=== PATIENT | male | born 1975 | race Caucasian/White ===

== ENCOUNTER 2021-07-21 18:24 | Emergency (ER) | payer OTHER, SELFPAY ==
--- NOTE | ~2021-07-21 | US_ITS ---
EXAMINATION: US scrotum doppler DATE: 07/21/2021 20:02 INDICATION: Scrotal trauma. TECHNIQUE: Grayscale and Doppler ultrasound images of the testes were obtained. COMPARISON: None. FINDINGS: The right testis measures 5.4 x 3.3 x 2.7. The left testis measures 4.0 x 3.3 x 2.4. There is normal vascular flow to both testes. The right epididymis is normal with normal vascular flow. The left epididymis is normal with normal vascular flow. Heterogeneous crescentic area along the subcaps ular region of the anterior right testicle, hypoechoic to normal parenchyma, without definite vascula r flow. More generalized, nonfocal heterogeneity in the remaining right testicle which may reflect ed sara. No hydroceles. Bilateral varicoceles. IMPRESSION: 1. Right intratesticular hematoma. Reviewed, dictated and finalized at location K.
[2021-07-21 18:35] VITALS: BP 148/93; PULSE 72; RESP 18; TEMP 36.5; O2SAT 97
--- NOTE | 2021-07-21 20:37 | ED.GENADULT ---
HPI - General Adult General Chief complaint: Urogenital-Male Stated complaint: baseball to testicle Time Seen by Provider: 07/21/21 20:32 Source: patient and RN notes reviewed Mode of arrival: ambulatory Limitations: no limitations History of Present Illness HPI narrative: 46-year-old male presented to the emergency department for evaluation of a right testicular injury. About 5:15 PM patient was struck in the groin by a baseball thrown at a low speed by a child. Patient states he was not able to catch the ball and was struck on the right testicle. Patient had noticed that he did have increased swelling. Patient reports no prior testicular surgical history, no vasectomy. He states he is urinating without issue. Review of Systems Review of Systems: CONSTITUTIONAL: Denies fever, chills, or sweats. GASTROINTESTINAL: Denies abdominal pain, nausea, vomiting, or diarrhea. GENITOURINARY: See HPI SKIN: Denies rash or itching. MUSCULOSKELETAL: Denies back pain, joint pain, or myalgia. NEUROLOGIC: Denies headache, numbness, or weakness. All systems reviewed & are unremarkable except as noted in HPI and below Exam Narrative: APPEARANCE: Well appearing, no pain, no distress, well-nourished. HEAD: normocephalic, atraumatic. EYES: PERRLA/EOMI, conjunctivae clear. NOSE: Normal no drainage EARS:TMS clear with good light reflex. THROAT: Pharynx clear, no exudate. NECK: Supple. No adenopathy, no masses. RESPIRATORY: Airway patent, respirations nonlabored. Clear to auscultation bilaterally, no rales, rhonchi, wheezing. CARDIOVASCULAR: Regular rate and rhythm without murmurs rubs or gallops. ABDOMINAL: Soft, nontender, nondistended, normal bowel sounds. Patient does have a low hanging right testicle that is larger than the left. No tenderness to left testicle. Mild tenderness to right. No significant scrotal edema or ecchymosis. MUSCULOSKELETAL: Moves all extremities. Strength/ROM intact, No edema, No calf tenderness. NEURO: Alert. Cranial nerves II through XII intact. Good gait. Good coordination SKIN: Warm, dry. Normal Color Course Consultations Consultation #1: Consulted Dr. Marie. is updated on the physical exam and on the ultrasound report. He did recommend the patient wear tight supportive underwear and to ice as needed. Did recommend follow-up with the office with an ultrasound in approximately 2 weeks. Vital Signs Vital signs: Vital Signs Temperature 97.7 F 07/21/21 18:35 Pulse Rate 72 07/21/21 18:35 Respiratory Rate 18 07/21/21 18:35 Blood Pressure 148/93 H 07/21/21 18:35 Pulse Oximetry 97 07/21/21 18:35 Temperature 99.3 F 07/21/21 20:48 Pulse Rate 79 07/21/21 20:48 Respiratory Rate 18 07/21/21 18:35 Blood Pressure 162/85 H 07/21/21 20:48 Pulse Oximetry 96 07/21/21 20:48 Medical Decision Making Vital Signs Vital Signs: Vital Signs Temperature 97.7 F 07/21/21 18:35 Pulse Rate 72 07/21/21 18:35 Respiratory Rate 18 07/21/21 18:35 Blood Pressure 148/93 H 07/21/21 18:35 Pulse Oximetry 97 07/21/21 18:35 Temperature 99.3 F 07/21/21 20:48 Pulse Rate 79 07/21/21 20:48 Respiratory Rate 18 07/21/21 18:35 Blood Pressure 162/85 H 07/21/21 20:48 Pulse Oximetry 96 07/21/21 20:48 Lab Data Lab results reviewed: Yes I reviewed the patient's lab results. Labs: Lab Results 07/21/21 Range/Units 21:13 Urine Color Yellow (Yellow) Urine Appearance Clear (Clear) Urine pH 5.5 (5.0-9.0) Ur Specific Eleanor >= 1.030 (1.001-1.035) Urine Protein Negative (Negative) mg/dL Urine Glucose (UA) Negative (Negative) mg/dL Urine Ketones Negative (Negative) mg/dL Ur Blood (Man) Negative (Negative) Urine Nitrate Negative (Negative) Urine Bilirubin Negative (Negative) Urine Urobilinogen 0.2 (<2.0) mg/dL Leukocyte Esterase Rfl Negative (Negative) WALTER/UL Urine RBC 0-2 (0-2) /hpf Urine WBC 4-6 H /hpf Ur Squamous Epith Cells Rare (Few) /
[2021-07-21 20:48] VITALS: BP 162/85; PULSE 79; TEMP 37.4; O2SAT 96
[2021-07-21 21:38] LABS: Appearance Urine Clear (Clear); Bilirubin Urine Negative (Negative); Blood Urine Negative (Negative); Color Urine Yellow (Yellow); Glucose Urine UA Negative (Negative); Ketones Urine Negative (Negative); Leukocyte Esterase Ur Negative LEU/UL (Negative); Nitrate Urine Negative (Negative); Protein Urine Negative (Negative); Specific Grav Ur >= 1.030 (1.001-1.035); Urobilinogen Urine 0.2 mg/dL (<2.0); pH Urine 5.5 (5.0-9.0)
[2021-07-21 21:45] LABS: Add Urine Microscopic? YES
[2021-07-21 21:48] LABS: Mucus Urine Few /lpf; RBC Urine 0-2 /hpf (0-2); Squamous Epithelial Cell Urine Rare /hpf (Few)
== END 2021-07-21 21:14 | disposition home or self-care (01) ==
LOC: ANHED 21:21
PROVIDERS: Emergency Provider Emergency Medicine; PCP Family Medicine
DX: S30.22XA Contusion of scrotum and testes, initial encounter (principal); W21.03XA Struck by baseball, initial encounter; Y93.64 Activity, baseball
CPT/HCPCS: 76870; 81001; 93976; 99284

== ENCOUNTER 2025-03-01 08:32 | Outpatient (CLI) | payer OTHER, SELFPAY ==
--- NOTE | ~2025-03-01 | MR_ITS ---
EXAMINATION: MR knee RT wo con DATE: 03/01/2025 09:08 INDICATION: Pain TECHNIQUE: Magnetic resonance imaging (MRI) of the knee was performed without intravenous contrast. Sequences included axial PD-weighted FS FSE, coronal PD- weighted FSE and PD-weighted FS FSE, sagittal PD-weighted FSE, and sagittal T2- weighted FS FSE. COMPARISON: None. FINDINGS: Moderately severe tricompartmental osteoarthritic degenerative changes with scattered areas of cartilaginous thinning and erosion throughout all compartments most severe in the medial joint space where there are early subchondral cystic changes developing in the medial femoral condyle and medial tibial plateau. There may be a 9 x 6 mm osteochondral defect along the posterior margin of the medial femoral condyle, seen on images 19 and 20 of series 4 and 5. A 1.5 x 0.9 x 0.9 cm corticated calcification is also noted contiguous with the posterior margin of the lateral femoral condyle as seen on image 8 series 6 consistent with benign fabella. Extensive horizontally oriented T2-weighted hyperintense signal in the posterior horn the medial meniscus appears to extend to the inferior margin on image 23 series 7. Abnormal signal also extends to the inferior margin at the meniscocapsular separation junction and image 14 series 5. The anterior horn of the medial meniscus, and the lateral meniscus appears intact. Mild hyperintense T2-weighted signal change in the distal fibers of the ACL but no discrete ACL tear seen. PCL appears normal. Collateral ligaments appear intact. In the extra articular soft tissues, the quadriceps and infrapatellar tendons appear intact. Incidental note of prominent variceal venous channels in the superficial soft tissues. IMPRESSION: 1. Moderately severe osteoarthritic degenerative changes especially in the medial compartment with medial meniscal tear involving the posterior horn and possibly extending to the meniscocapsular junction noted as described above. 2. Focal area of advanced erosion or possible osteochondral defect along the posterior margin of the medial femoral condyle measuring 9 x 6 mm. See details above. 3. Mild signal changes in the distal ACL fibers may represent mild sprain. Reviewed, dictated and finalized at location A. [employer] IMPRESSION: 1. Moderately severe osteoarthritic degenerative changes especially in the medi al compartment with medial meniscal tear involving the posterior horn and possi gregor extending to the meniscocapsular junction noted as described above. 2. Focal area of advanced erosion or possible osteochondral defect along the po sterior margin of the medial femoral condyle measuring 9 x 6 mm. See details ab ove. 3. Mild signal changes in the distal ACL fibers may represent mild sprain.
== END 2025-03-01 08:33 | disposition home or self-care (01) ==
LOC: MICIMG 08:33
PROVIDERS: PCP Chiropractor; Visit Provider Chiropractor
DX: M17.11 Unilateral primary osteoarthritis, right knee (principal)
CPT/HCPCS: 73721